=== PATIENT | male | born 1955 | race American Indian/Alaskan Native ===

== ENCOUNTER 2019-05-08 17:25 | Inpatient (IN) | payer OTHER ==
[~2019-05-08] VITALS: Ht 167.6 cm; Wt 99.8 kg
[2019-05-08 18:05] LABS: BASOPHILS ABSOLUTE AUTO 0.04 K/mm3 (0.00-0.23); BASOPHILS PERCENT AUTO 0 % (0-2); EOSINOPHILS ABSOLUTE AUTO 0.01 K/mm3 (0.00-0.68); EOSINOPHILS PERCENT AUTO 0 % (0-6); Hematocrit 50.2 % (37.0-53.0); IMMATURE GRAN ABSOLUTE AUTO 0.02 K/mm3 (0.00-0.10); IMMATURE GRAN PERCENT AUTO 0 % (0-1); LYMPHOCYTES ABSOLUTE AUTO 0.52 K/mm3 (0.84-5.20); LYMPHOCYTES PERCENT AUTO 4 % (21-46); MONOCYTES ABSOLUTE AUTO 0.56 K/mm3 (0.16-1.47); MONOCYTES PERCENT AUTO 4 % (4-13); Mean Corpuscular HGB 29.2 pg (26.0-34.0); Mean Corpuscular HGB Conc 33.9 g/dL (31.5-36.5); Mean Corpuscular Volume 86 fL (80-100); Mean Platelet Volume 9.9 fL (9.1-12.4); NEUTROPHILS PERCENT AUTO 92 % (41-73); Platelet Count 277 K/mm3 (150-400); RDW Coefficient Variation 12.8 % (11.7-14.2); RDW Standard Deviation 39.8 fL (35.1-46.3); Red Blood Cell Count 5.83 M/mm3 (4.30-5.90); White Blood Cell Count 14.85 K/mm3 (4.00-11.30)
[2019-05-08 19:10] LABS: Alanine Aminotransfer (ALT/SGP 42 U/L (12-78); Albumin, Blood 4.3 g/dL (3.4-5.0); Albumin/Globulin Ratio 1.2 (0.8-1.8); Alk Phos 104 U/L (50-136); Anion Gap 9 mmol/L (6-16); Aspartate Aminotrans (AST/SGOT 15 U/L (12-37); Bilirubin, Total 0.9 mg/dL (0.1-1.0); Blood Urea Nitrogen 27 mg/dL (8-24); Bun/Creatinine Ratio 28.7 (12.0-20.0); CO2, Blood 28 mmol/L (21-32); Calcium, Blood 9.6 mg/dL (8.5-10.1); Chloride, Blood 106 mmol/L (98-108); Creatinine, Blood 0.94 mg/dL (0.60-1.20); Globulin, Blood 3.6 g/dL (2.2-4.0); Glomerular Filtration Rate >60 (60-); Glucose, Blood 131 mg/dL (70-99); Potassium, Blood 3.5 mmol/L (3.5-5.5); Sodium, Blood 143 mmol/L (136-145); Total Protein, Blood 7.9 g/dL (6.4-8.2)
[2019-05-08] MEDS ORDERED: OMEP20ER PO (22:26)
[2019-05-08] MEDS ORDERED: AMLO10 PO (22:27)
[2019-05-08] MEDS ORDERED: LOSA50 PO (22:27)
[2019-05-08] MEDS ORDERED: Dyazide 37.5-21 EACH PO (22:28)
[2019-05-08] MEDS ORDERED: ATOR40TA PO (22:28)
[2019-05-08] MEDS ORDERED: [UNRECOGNIZED DRUG - OTHER] RIGHTEYE (22:30)
--- NOTE | 2019-05-09 08:05 | NUR ---
SUMMARY PT HAS BEEN STABLE SINCE ADMISSION TO THE FLOOR. A&O X4, 1 ASSIST IN THE ROOM DUE TO LINES AND NG TUBE. NG TUBE REMAINS IN PLACE TO LOW INTER SUCTION. PT ENC TO SLOW DOWN ON ICE CHIPS. PT STATES NAUSEA IS BETTER THIS AM. PAIN MEDICATED PER EMAR. CALL LIGHT IN REACH.REPORT GIVEN TO DAY RN
[2019-05-09 09:23] LABS: BASOPHILS ABSOLUTE AUTO 0.01 K/mm3 (0.00-0.23); BASOPHILS PERCENT AUTO 0 % (0-2); EOSINOPHILS ABSOLUTE AUTO 0.02 K/mm3 (0.00-0.68); EOSINOPHILS PERCENT AUTO 0 % (0-6); Hemoglobin 14.6 g/dL (13.5-17.5); IMMATURE GRAN ABSOLUTE AUTO 0.01 K/mm3 (0.00-0.10); IMMATURE GRAN PERCENT AUTO 0 % (0-1); LYMPHOCYTES ABSOLUTE AUTO 0.36 K/mm3 (0.84-5.20); LYMPHOCYTES PERCENT AUTO 5 % (21-46); MONOCYTES PERCENT AUTO 7 % (4-13); Mean Corpuscular HGB 29.5 pg (26.0-34.0); Mean Corpuscular Volume 87 fL (80-100); Mean Platelet Volume 9.6 fL (9.1-12.4); NEUTROPHILS PERCENT AUTO 87 % (41-73); Platelet Count 216 K/mm3 (150-400); RDW Coefficient Variation 13.1 % (11.7-14.2); RDW Standard Deviation 41.1 fL (35.1-46.3); Red Blood Cell Count 4.95 M/mm3 (4.30-5.90)
[2019-05-09 10:15] LABS: Anion Gap 5 mmol/L (6-16); Blood Urea Nitrogen 27 mg/dL (8-24); Bun/Creatinine Ratio 28.3 (12.0-20.0); CO2, Blood 29 mmol/L (21-32); Calcium, Blood 7.9 mg/dL (8.5-10.1); Chloride, Blood 110 mmol/L (98-108); Creatinine, Blood 0.95 mg/dL (0.60-1.20); Glomerular Filtration Rate >60 (60-); Glucose, Blood 123 mg/dL (70-99); Potassium, Blood 3.6 mmol/L (3.5-5.5); Sodium, Blood 144 mmol/L (136-145)
--- NOTE | 2019-05-09 19:30 | NUR ---
SHIFT SUMMARY PAIN HAS BEEN MANAGED WITH MORPHINE THIS SHIFT. PT'S ANXIETY HAS BEEN MINIMAL, MANAGED WITH ATIVAN NEEDED. PT HAS BEEN PASSING FLATUS THIS SHIFT. ABD REMAINS DISTENDED. PT ENCOURAGED TO AMBULATE. VSS. REPORT GIVEN TO JAQUELINE WOOD.
--- NOTE | 2019-05-10 18:30 | NUR ---
DISCHARGE SUMMARY PT A&OX4, VSS, LEFT FLOOR WITH ALL PERSONAL POSSESSIONS INCLUDING DISCHARGE PACKET TO GO HOME WITH . DISCHARGE INSTRUCTIONS PROVIDED. PT REP UNDERSTANDING THOSE INSTRUCTIONS. IV DC'D.
== END 2019-05-10 18:35 | disposition home or self-care (01) | DRG 389 ==
LOC: ER 17:25 → SURS 19:40
PROVIDERS: Physician Assistant; ADMIT Surgery
DX: K56.609 Unspecified intestinal obstruction, unspecified as to partial versus complete obstruction (principal); K50.90 Crohn's disease, unspecified, without complications; I10 Essential (primary) hypertension; E78.5 Hyperlipidemia, unspecified
CPT/HCPCS: 36415; 74018; 74019; 74176; 74250; 80048; 80053; 83690; 85025; 96361; 96374; 99285-25; C9113; J1650; J2060; J2270; J2405; J7030; J7120; Q9963

== ENCOUNTER 2019-10-12 11:55 | Day surgery (SDC) | payer MEDICARE ==
[~2019-10-12] VITALS: Ht 167.6 cm; Wt 109.3 kg
[~2019-10-12 11:55] MED LIST: AMLO10 PO; ATOR40TA PO; Dyazide 37.5-21 EACH PO; LOSA50 PO; NORVASC10 MG PO; OMEP20ER PO; TADA10TA PO; [UNRECOGNIZED DRUG - OTHER] RIGHTEYE
== END 2019-10-12 14:39 | disposition home or self-care (01) ==
LOC: ORSCSDS 11:55
PROVIDERS: Student in an Organized Health Care Education/Training Program
PROC: 0DBE8ZX Excision of Large Intestine, Via Natural or Artificial Opening Endoscopic, Diagnostic (ICD-10-PCS; principal; 2019-10-12 14:00)
PROC: 0DBN8ZX Excision of Sigmoid Colon, Via Natural or Artificial Opening Endoscopic, Diagnostic (ICD-10-PCS; principal; 2019-10-12 14:00)
PROC: 0DBL8ZX Excision of Transverse Colon, Via Natural or Artificial Opening Endoscopic, Diagnostic (ICD-10-PCS; principal; 2019-10-12 14:00)
DX: K50.90 Crohn's disease, unspecified, without complications (principal); K63.5 Polyp of colon; D12.3 Benign neoplasm of transverse colon; K57.30 Diverticulosis of large intestine without perforation or abscess without bleeding; I10 Essential (primary) hypertension; K21.9 Gastro-esophageal reflux disease without esophagitis; E66.01 Morbid (severe) obesity due to excess calories; Z68.38 Body mass index [BMI] 38.0-38.9, adult; Z79.899 Other long term (current) drug therapy
CPT/HCPCS: 88305; J2405; J2704; J7120

== ENCOUNTER 2019-12-14 12:55 | Day surgery (SDC) | payer MEDICARE ==
[~2019-12-14] VITALS: Ht 167.6 cm; Wt 112.1 kg
== END 2019-12-14 14:26 | disposition home or self-care (01) ==
LOC: ORSCSDS 12:55
PROVIDERS: Student in an Organized Health Care Education/Training Program
PROC: 0DBA8ZX Excision of Jejunum, Via Natural or Artificial Opening Endoscopic, Diagnostic (ICD-10-PCS; principal; 2019-12-14 14:30)
PROC: 0DB58ZX Excision of Esophagus, Via Natural or Artificial Opening Endoscopic, Diagnostic (ICD-10-PCS; principal; 2019-12-14 14:30)
DX: K21.9 Gastro-esophageal reflux disease without esophagitis (principal); K22.70 Barrett's esophagus without dysplasia; K50.90 Crohn's disease, unspecified, without complications; I10 Essential (primary) hypertension; E78.5 Hyperlipidemia, unspecified; Z79.899 Other long term (current) drug therapy; E66.01 Morbid (severe) obesity due to excess calories; Z68.39 Body mass index [BMI] 39.0-39.9, adult
CPT/HCPCS: 88305; 88342; J2250; J2704; J7120

== ENCOUNTER 2020-04-03 06:47 | Day surgery (SDC) | payer MEDICARE ==
[~2020-04-03] VITALS: Ht 167.6 cm; Wt 115.5 kg
== END 2020-04-03 10:12 | disposition home or self-care (01) ==
LOC: ORSCSDS 06:47
PROVIDERS: Orthopaedic Surgery
PROC: 0SBD4ZZ Excision of Left Knee Joint, Percutaneous Endoscopic Approach (ICD-10-PCS; principal; 2020-04-03 08:00)
DX: S83.242A Other tear of medial meniscus, current injury, left knee, initial encounter (principal); M94.262 Chondromalacia, left knee; I10 Essential (primary) hypertension; K21.9 Gastro-esophageal reflux disease without esophagitis; E66.01 Morbid (severe) obesity due to excess calories; Z68.41 Body mass index [BMI] 40.0-44.9, adult; Z79.899 Other long term (current) drug therapy
CPT/HCPCS: J0171; J0690; J1100; J1885; J2250; J2405; J2550; J2704; J3010; J7120

== ENCOUNTER 2022-08-12 03:05 | Inpatient (IN) | payer MEDICARE ==
[~2022-08-12] VITALS: Ht 175.3 cm; Wt 83.8 kg
[2022-08-12 04:12] LABS: BASOPHILS ABSOLUTE AUTO 0.04 K/mm3 (0.00-0.23); BASOPHILS PERCENT AUTO 0 % (0-2); EOSINOPHILS ABSOLUTE AUTO 0.04 K/mm3 (0.00-0.68); EOSINOPHILS PERCENT AUTO 0 % (0-6); Hematocrit 47.5 % (37.0-53.0); Hemoglobin 16.8 g/dL (13.5-17.5); IMMATURE GRAN ABSOLUTE AUTO 0.03 K/mm3 (0.00-0.10); IMMATURE GRAN PERCENT AUTO 0 % (0-1); LYMPHOCYTES ABSOLUTE AUTO 0.32 K/mm3 (0.84-5.20); LYMPHOCYTES PERCENT AUTO 3 % (21-46); MONOCYTES ABSOLUTE AUTO 0.46 K/mm3 (0.16-1.47); MONOCYTES PERCENT AUTO 5 % (4-13); Mean Corpuscular HGB 30.7 pg (26.0-34.0); Mean Corpuscular HGB Conc 35.4 g/dL (31.5-36.5); Mean Corpuscular Volume 87 fL (80-100); Mean Platelet Volume 9.5 fL (9.1-12.4); NEUTROPHILS PERCENT AUTO 91 % (41-73); Platelet Count 228 K/mm3 (150-400); RDW Standard Deviation 38.6 fL (35.1-46.3); Red Blood Cell Count 5.48 M/mm3 (4.30-5.90); White Blood Cell Count 9.69 K/mm3 (4.00-11.30)
[2022-08-12 04:31] LABS: Albumin, Blood 3.8 g/dL (3.4-5.0); Albumin/Globulin Ratio 1.2 (0.8-1.8); Bilirubin, Total 0.7 mg/dL (0.1-1.0); Bun/Creatinine Ratio 37.5 (12.0-20.0); Calcium, Blood 9.2 mg/dL (8.5-10.1); Creatinine, Blood 0.83 mg/dL (0.60-1.20); Globulin, Blood 3.2 g/dL (2.2-4.0); Potassium, Blood 3.6 mmol/L (3.5-5.5)
[2022-08-12 05:47] LABS: Source, Urine Clean Catch
[2022-08-12 05:56] LABS: Appearance, Urine Clear (Clear); Bilirubin, Urine Neg (Neg); Blood, Urine 1+ (Neg); Color, Urine Yellow (P-Yellow); Glucose Qualitative, Urine Neg (Neg); Ketones, Urine Neg (Neg); Leukocyte Esterase, Urine Neg (Neg); Nitrite, Urine Neg (Neg); Protein, Urine 2+ (Neg); Urobilinogen, Urine NORM (Normal)
[2022-08-12 06:05] LABS: White Blood Cells, Urine 0-2 /hpf (0-5)
[2022-08-12 06:06] LABS: Bacteria Rare /hpf; Red Blood Cells, Urine 0-2 /hpf (0-2); Renal Epithelial Rare /hpf (0-Rare); Squamous Epithelial Cells Rare /hpf (Few)
[2022-08-12 06:07] LABS: Mucus Light (0-Heavy)
[2022-08-12 11:53] LABS: C-REACTIVE PROTEIN, EXT RANGE 0.671 mg/dL (0.000-0.300)
[2022-08-12 11:54] LABS: Thyroid Stimulating Hormone 1.47 uIU/mL (0.360-4.800)
[2022-08-12 14:13] LABS: Adenovirus F 40/41 Not Detected (NOT DETECT); Astrovirus Not Detected (NOT DETECT); Campylobacter Sp Not Detected (NOT DETECT); Cryptosporidium Not Detected (NOT DETECT); Cyclospora Cayetanensis Not Detected (NOT DETECT); E. Coli O157 Not Detected (NOT DETECT); Entamoeba Histolytica Not Detected (NOT DETECT); Enteroaggregative E. coli-EAEC Not Detected (NOT DETECT); Enteropathogenic E. coli-EPEC Not Detected (NOT DETECT); Enterotoxigenic E. coli-ETEC Not Detected (NOT DETECT); Giardia Lamblia Not Detected (NOT DETECT); Norovirus GI/GII Not Detected (NOT DETECT); Plesiomonas Shigelloides Not Detected (NOT DETECT); Rotavirus A Not Detected (NOT DETECT); Salmonella Sp Not Detected (NOT DETECT); Sapovirus Not Detected (NOT DETECT); Shiga Toxin-prod E. coli-STEC Not Detected (NOT DETECT); Shigella/Enteroin E. coli-EIEC Not Detected (NOT DETECT); Vibrio Cholerae Not Detected (NOT DETECT); Vibrio Sp Not Detected (NOT DETECT); Yersinia Enterocolitica Not Detected (NOT DETECT)
--- NOTE | 2022-08-12 18:28 | NUR ---
Admission Note Received report from NINA Merlos in ed. Pt to room via fozia cadet transfered to bed. Pt oriented to room and call light. Educated on bed alarm. Bed in low, call light within reach. Pt reports sharp abd pain that woke him up last night, at time of admission pain was occasional cramp. This evening, pt reporting 6/10 pain to abd, medicated x1 with positive results. Pt alert, oriented X4; calm and cooperative with care. Pt reports history of anxiety. Pt Denies chest pain/pressure, sob, nasuea, and numb/tingling. Pt report feeling "whoozy" when standing and walking around. Tele sinus with first degree block, bp stable. Ls clear t/o, spo2 >90% on ra, breathing even and unlabored. Abd soft, tender on palpation, normo to hyperactive bt, pt having multiple episode of yellow liquid dirrhea, gi panel sample sent in ed, results negative, immodium administered per orders. Vss. No other acute changes noted. Will continue to monitor until report given to oncoming nina
[2022-08-13 04:36] LABS: BASOPHILS ABSOLUTE AUTO 0.02 K/mm3 (0.00-0.23); BASOPHILS PERCENT AUTO 0 % (0-2); EOSINOPHILS PERCENT AUTO 0 % (0-6); Hematocrit 38.2 % (37.0-53.0); Hemoglobin 13.3 g/dL (13.5-17.5); IMMATURE GRAN ABSOLUTE AUTO 0.02 K/mm3 (0.00-0.10); IMMATURE GRAN PERCENT AUTO 0 % (0-1); LYMPHOCYTES PERCENT AUTO 6 % (21-46); MONOCYTES PERCENT AUTO 4 % (4-13); Mean Corpuscular HGB 30.7 pg (26.0-34.0); Mean Corpuscular HGB Conc 34.8 g/dL (31.5-36.5); Mean Corpuscular Volume 88 fL (80-100); Mean Platelet Volume 9.6 fL (9.1-12.4); NEUTROPHILS ABSOLUTE AUTO 4.89 K/mm3 (1.96-9.15); NEUTROPHILS PERCENT AUTO 90 % (41-73); Platelet Count 201 K/mm3 (150-400); RDW Coefficient Variation 12.1 % (11.7-14.2); RDW Standard Deviation 39.8 fL (35.1-46.3); Red Blood Cell Count 4.33 M/mm3 (4.30-5.90); White Blood Cell Count 5.43 K/mm3 (4.00-11.30)
[2022-08-13 04:49] LABS: Albumin, Blood 2.7 g/dL (3.4-5.0); Albumin/Globulin Ratio 1.1 (0.8-1.8); Bilirubin, Total 0.4 mg/dL (0.1-1.0); Bun/Creatinine Ratio 23.1 (12.0-20.0); Creatinine, Blood 0.78 mg/dL (0.60-1.20); Globulin, Blood 2.4 g/dL (2.2-4.0); Magnesium, Blood 1.8 mg/dL (1.6-2.4); Potassium, Blood 4.1 mmol/L (3.5-5.5); Total Protein, Blood 5.1 g/dL (6.4-8.2)
--- NOTE | 2022-08-13 05:58 | NUR ---
Assumed care of pt at 1900. A/Ox4. Able to make needs known. Reports chronic anxiety for which he takes Ativan for. VSS. Reports abdominal pain, mostly when he gets up. Describes it as cramping in RLQ. Sats over 95% on RA. SR with 1st degree hb on tele. Denies CP/pressure. Strong +2 pulses t/o. Moderate abdominal distention, tender to palpation with hypoactive bowel tones. Continues to have moderate amounts of liquid yellow diarrhea with no solids. No acute events. Will report to lloyd WOOD.
--- NOTE | 2022-08-13 14:45 | NUR ---
TRANSFER TO MEDICAL PT A&O X4, PLEASANT & COOPERATIVE. INDEPENDENT IN RM. VSS. SPO2 > 92% ON RA. PT MADE MEDICAL W/ TELE STATUS. MONITOR SHOWING SR, HR 70s. PT W/ REPORT OF YELLOW LIQUID STOOL THIS AM. PT ON FULL LIQUID DIET. PT REQUESTING PRN PO ATIVAN THIS AFTERNOON, STATING, "IT KEEPS YOU FROM HAVING TO PEEL ME OFF THE CEILING." PT CALM IN RM. REPORT CALLED TO ACCEPTING MEDICAL FLOOR RN. PT TAKEN TO RM 301 BY WHEELCHAIR W/ BELONGINGS @ APPROX [id number].
--- NOTE | 2022-08-13 15:00 | NUR ---
PT TRANSFERRED BUT TO ROOM 301 FROM PCU. TRANSFERRED TO BED INDEPENDENTLY. SETTLED IN AND ORIENTED TO UNIT.
--- NOTE | 2022-08-13 18:45 | NUR ---
SHIFT SUMMARY HAS HAD NO CHANGE SINCE ARRIVING TO UNIT. GIVEN ATIVAN AND ATE DINNER. REPORTS HE THINKS HE IS GOING HOME TOMORROW AND WHAT HE CAME FOR IS RESOLVED.
[2022-08-14 04:50] LABS: Hematocrit 40.4 % (37.0-53.0)
--- NOTE | 2022-08-14 05:53 | NUR ---
PT SLEPT T/O NIGHT- ATIVAN PRN GIVEN FOR HX OF ANXIETY D/T PTSD- PT UP AB OG
[2022-08-14] MEDS ORDERED: PRED20 PO (11:30)
== END 2022-08-14 11:46 | disposition home or self-care (01) | DRG 392 ==
LOC: ER 03:05 → SURS 08:15 → ERHOLD 08:15 → PCU 08:18 → MEDS 08:18 → SURS 09:24 → ERHOLD 09:24 → PCU 12:29 → MEDS 08-13 14:37
PROVIDERS: Family Medicine; Nurse Practitioner Acute Care; Student in an Organized Health Care Education/Training Program; ADMIT Internal Medicine
DX: K52.9 Noninfective gastroenteritis and colitis, unspecified (principal); I47.1 Supraventricular tachycardia; K50.90 Crohn's disease, unspecified, without complications; I10 Essential (primary) hypertension; K21.9 Gastro-esophageal reflux disease without esophagitis; F41.9 Anxiety disorder, unspecified; K22.70 Barrett's esophagus without dysplasia; Z90.49 Acquired absence of other specified parts of digestive tract; Z79.899 Other long term (current) drug therapy
CPT/HCPCS: 36415; 74177; 74250; 80053; 81001; 83690; 83735; 84443; 85014; 85018; 85025; 85651; 86140; 87507; 93005; 93010; 96374-59; 96375; 99285-25; A9270; C1751; J1650; J1885; J2060; J2920; J3010; J3480; J7030; J7050; Q9967

== ENCOUNTER 2023-02-02 12:01 | Day surgery (SDC) | payer MEDICARE ==
[~2023-02-02] VITALS: Ht 167.6 cm; Wt 84.0 kg
[~2023-02-02 12:01] MED LIST changes: +PRED20 PO
--- NOTE | 2023-02-02 12:51 | NUR ---
02/02/[address] ORDERED ZOFRAN TOBY EGD DUE TO PT HX OF VOMITTING WITH ALL HIS PAST PROCEDURES; ZOFRAN 4MG IV PER DR RODRIGUEZ
== END 2023-02-02 14:30 | disposition home or self-care (01) ==
LOC: ORSCSDS 12:01
PROVIDERS: Student in an Organized Health Care Education/Training Program
PROC: 0DB98ZX Excision of Duodenum, Via Natural or Artificial Opening Endoscopic, Diagnostic (ICD-10-PCS; principal; 2023-02-02 13:15)
PROC: 0DB78ZX Excision of Stomach, Pylorus, Via Natural or Artificial Opening Endoscopic, Diagnostic (ICD-10-PCS; principal; 2023-02-02 13:15)
PROC: 0DB58ZX Excision of Esophagus, Via Natural or Artificial Opening Endoscopic, Diagnostic (ICD-10-PCS; principal; 2023-02-02 13:15)
PROC: 0DJD8ZZ Inspection of Lower Intestinal Tract, Via Natural or Artificial Opening Endoscopic (ICD-10-PCS; principal; 2023-02-02 13:15)
DX: K22.70 Barrett's esophagus without dysplasia (principal); K29.70 Gastritis, unspecified, without bleeding; K21.9 Gastro-esophageal reflux disease without esophagitis; K50.90 Crohn's disease, unspecified, without complications; Z86.010 Personal history of colon polyps; K44.9 Diaphragmatic hernia without obstruction or gangrene; K57.30 Diverticulosis of large intestine without perforation or abscess without bleeding; I10 Essential (primary) hypertension; Z79.899 Other long term (current) drug therapy
CPT/HCPCS: 88305; 88342; J2405; J2704; J7120

== ENCOUNTER 2024-04-25 07:13 | Emergency (ER) | payer MEDICARE ==
[~2024-04-25] VITALS: Ht 167.6 cm; Wt 81.7 kg
[2024-04-25] MEDS ORDERED: Ondansetron HCl 2 MG / ML 2ML Vial IV ONE (07:50)
[2024-04-25] MEDS ORDERED: NS 1,000 ML IV SCH (07:50)
[2024-04-25] MEDS ORDERED: HYDROmorphone HCl/Pf 1MG SYR IV ONE (07:55)
[2024-04-25 08:23] LABS: BASOPHILS ABSOLUTE AUTO 0.03 K/mm3 (0.00-0.23); BASOPHILS PERCENT AUTO 0 % (0-2); EOSINOPHILS ABSOLUTE AUTO 0.02 K/mm3 (0.00-0.68); EOSINOPHILS PERCENT AUTO 0 % (0-6); Hemoglobin 16.8 g/dL (13.5-17.5); IMMATURE GRAN ABSOLUTE AUTO 0.02 K/mm3 (0.00-0.10); IMMATURE GRAN PERCENT AUTO 0 % (0-1); LYMPHOCYTES ABSOLUTE AUTO 0.59 K/mm3 (0.84-5.20); LYMPHOCYTES PERCENT AUTO 7 % (21-46); MONOCYTES ABSOLUTE AUTO 0.43 K/mm3 (0.16-1.47); MONOCYTES PERCENT AUTO 5 % (4-13); Mean Corpuscular HGB 29.9 pg (26.0-34.0); Mean Corpuscular Volume 85 fL (80-100); Mean Platelet Volume 9.4 fL (9.1-12.4); NEUTROPHILS ABSOLUTE AUTO 7.47 K/mm3 (1.96-9.15); NEUTROPHILS PERCENT AUTO 87 % (41-73); Platelet Count 271 K/mm3 (150-400); RDW Coefficient Variation 12.7 % (11.7-14.2); RDW Standard Deviation 39.8 fL (35.1-46.3); Red Blood Cell Count 5.62 M/mm3 (4.30-5.90); White Blood Cell Count 8.56 K/mm3 (4.00-11.30)
[2024-04-25 09:12] LABS: Albumin, Blood 4.1 g/dL (3.4-5.0); Albumin/Globulin Ratio 1.2 (0.8-1.8); Bilirubin, Total 0.6 mg/dL (0.1-1.0); Bun/Creatinine Ratio 38.6 (12.0-20.0); Calcium, Blood 9.4 mg/dL (8.5-10.1); Creatinine, Blood 0.75 mg/dL (0.60-1.20); Globulin, Blood 3.3 g/dL (2.2-4.0); Potassium, Blood 3.5 mmol/L (3.5-5.5); Total Protein, Blood 7.4 g/dL (6.4-8.2)
[2024-04-25] MEDS ORDERED: Famotidine 10 MG/ML 2ML Vial IV ONE (09:50)
[2024-04-25] MEDS ORDERED: Lidocaine 2% Viscous Soln 15 ML UDC PO ONE (10:00)
[2024-04-25] MEDS ORDERED: Mag Hydrox/AL Hydrox/Simeth 30 ML UDC PO ONE (10:00)
[2024-04-25] MEDS ORDERED: ONDA4ODT MM (12:18)
[2024-04-25 13:18] VITALS: BP 132/84
== END 2024-04-25 13:15 | disposition home or self-care (01) ==
LOC: ER 07:13
PROVIDERS: Emergency Medicine
DX: K56.0 Paralytic ileus (principal); Z79.899 Other long term (current) drug therapy
CPT/HCPCS: 74177; 80053; 83690; 85025; 96361; 96374-59; 96375; 99284-25; A9270; J1170; J2405; J7030; Q9967